=== PATIENT | male | born 1995 | race Caucasian/White ===

== ENCOUNTER 2017-11-28 11:58 | Emergency (ER) | payer BC, MEDICAID, OTHER ==
[2017-11-28] MEDS ORDERED: ONDANSETRON DISINTEGRATING 4 MG TAB PO ONE (12:15)
[2017-11-28] MEDS ORDERED: IPRATROPIUM/ALBUTEROL 3 ML DEYVIAL IH ONE (12:18)
--- NOTE | 2017-11-28 13:20 | EDPHY ---
H & P Stated Complaint: VOMITING AND COUGH SINCE YESTERDAY /DIARRHEA Time Seen by Provider: 11/28/17 12:08 HPI/ROS: CHIEF COMPLAINT: Fever, cough, vomiting and diarrhea History by patient HISTORY OF PRESENT ILLNESS: 22-year-old man with history of asthma and who smokes both tobacco and marijuana is brought in by his mother complaining of 24 hr of flu-like symptoms with subjective fever, cough with posttussive vomiting as well as generalized nausea, vomiting and diarrhea. He thinks her a few specks of blood in his vomit this morning. He denies any blood in his diarrhea. He complains of general malaise and body aches. He needed to use his nebulizer last night because of his coughing and wheezing. He has tried paiv-aop-rdvxyeo cold medicine with no relief. He has been able to take down fluids. REVIEW OF SYSTEMS: As in HPI, and all other systems reviewed and are negative Source: Patient, Family - Medical/Surgical History Hx Asthma: No Hx Chronic Respiratory Disease: No Hx Diabetes: No Hx Cardiac Disease: No Hx Renal Disease: No Hx Cirrhosis: No Hx Alcoholism: No Hx HIV/AIDS: No Hx Splenectomy or Spleen Trauma: No Other PMH: rad. HERNIA INGUINAL. LEFT FA REPAIR - Social History Smoking Status: Heavy smoker - Physical Exam Exam: General Appearance: Alert, nontoxic-appearing. Head: normocephalic, atraumatic Eyes: Pupils equal and round, reactive to light, no pallor or injection. Mouth: Mucous membranes moist. Oropharynx clear with no tonsillar enlargement or exudates or erythema Respiratory: Normal, effort, diffuse scattered inspiratory and expiratory wheezes bilaterally Cardiovascular: Regular rate and rhythm. S1, S2, no murmurs, gallops or rubs appreciated Gastrointestinal: Abdomen is soft and nontender, no masses, bowel sounds normal. Back: No CVA tenderness, no bony tenderness Neurological: Awake, alert and oriented x 3, no pronator drift, normal gait, no pronator drift Skin: Warm and dry, no rashes. Musculoskeletal: No deformities or tenderness. Extremities: full range of motion, no edema, DP2+ bilat Psychiatric: Patient has normal affect, there is no agitation. Constitutional: Initial Vital Signs Temperature (C) 36.6 C 11/28/17 12:05 Heart Rate 72 11/28/17 12:05 Respiratory Rate 20 11/28/17 12:05 Blood Pressure 134/87 H 11/28/17 12:05 O2 Sat (%) 96 11/28/17 12:05 O2 Delivery Mode Room Air Allergies/Adverse Reactions: UNKNOWN ABX Allergy (Uncoded 11/28/17 12:10) Home Medications: Medication Instructions Recorded Ondansetron Odt [Zofran Odt 4 mg 4 mg PO Q4 PRN #12 tab 11/28/17 (*)] Oseltamivir Phosphate [Tamiflu 75 75 mg PO BID #10 cap 11/28/17 mg (*)] Medical Decision Making ED Course/Re-evaluation: 22-year-old smoker presents with flu-like symptoms and wheezing. Influenza B is positive. Patient was given Zofran for his nausea and was able to take oral hydration without difficulty after this. He was given a nebulizer treatment. His peak flow before the neb was 215 afterwards 375. He is also feeling better afterwards and on exam his lungs were clear. We discussed the dangers of smoking, especially in a patient with underlying asthma. We discussed home care and conservative measures for his influenza and patient will be started on Tamiflu. He is discharged home with prescription for Zofran as well for his persistent nausea. We discussed return precautions with the patient and his mother. - Data Points Medications Given: Discontinued Medications Albuterol/Ipratropium (Duoneb) 3 ml IH EDNOW ONE Stop: 11/28/17 12:19 Last Admin: 11/28/17 12:47 Dose: 3 ml Ondansetron HCl (Zofran Odt) 4 mg PO EDNOW ONE Stop: 11/28/17 12:16 Last Admin: 11/28/17 12:20 Dose: 4 mg Departure - Departure Disposition: Home, Routine, Self-Care Clinical Impression: Influenza B Condition: Fair Instructions: Influenza (DC) Additional Instructions: You were seen by Dr. Dixie Ortiz today. Take Tamiflu as prescribed. Use Zofran as needed for nausea. Drink plenty of fluids to stay hydrated. He may have today and tomorrow off work and may return on 12/02 if you are feeling better. Return for any worsening or new concerns. Referrals: CLINICA,KORINA [Other] - As per Instructions Stand Alone Forms: Work Excuse Prescriptions: Ondansetron Odt [Zofran Odt 4 mg (*)] 4 mg PO Q4 PRN #12 tab PRN Reason: Nausea and vomiting Oseltamivir Phosphate [Tamiflu 75 mg (*)] 75 mg PO BID #10 cap
[2017-11-28 13:47] VITALS: BP 134/80
== END 2017-11-28 13:45 | disposition home or self-care (01) ==
LOC: CED 11:58
DX: J10.1 Influenza due to other identified influenza virus with other respiratory manifestations (principal); F17.200 Nicotine dependence, unspecified, uncomplicated
CPT/HCPCS: 87400-PO

== ENCOUNTER 2018-01-09 20:05 | Emergency (ER) | payer MEDICAID ==
[2018-01-09] MEDS ORDERED: ONDANSETRON 4 MG/2 ML VIAL IVP ONE (20:32)
[2018-01-09] MEDS ORDERED: NS 1,000 ML IV ONE (20:32)
[2018-01-09] MEDS ORDERED: IPRATROPIUM/ALBUTEROL 3 ML DEYVIAL IH ONE (20:32)
--- NOTE | 2018-01-09 20:51 | EDPHY ---
H & P Stated Complaint: Cough, congestion, body aches Time Seen by Provider: 01/09/18 20:19 HPI/ROS: This patient complains of cough, subjective fevers for 3-4 days. Reports coughs occasionally productive. He explains that he has difficulty sleeping due to the frequency of the cough over the past 2 nights developed vomiting and diarrhea over the past 48 hr. Describes loose watery stools several episodes yesterday and today. Vomiting was worse yesterday and is diminished today but he still had 6 episodes of vomiting today. He reports minimal capacity as tolerated p.o. Fluids without vomiting. He also reports that the cough is triggering some gagging and vomiting. He reports associated fatigue. He notes no exacerbating factors for symptoms except mild improvement from albuterol MDI and neb that he takes for his asthma. His last neb was 3 hr prior to arrival. ROS: Low-grade subjective fevers. No high fevers or chills. Positive fatigue. No other constitutional symptoms except myalgias. HEENT: Nasal congestion over the past few days. No sinus pain. No sore throat. No ear pain. Neuro: No headache. No other symptoms. Pulmonary: No pleuritic pain. No respiratory distress. No hemoptysis. Cardiovascular: No lightheadedness. No chest pain. GI: No hematemesis. No bloody stools or mucus in stools. No abdominal pain associated with the symptoms : No complaints. No dysuria frequency urgency or testicle pain. Integumentary: No skin rash musculoskeletal: Myalgias 10 point ROS is otherwise negative Source: Patient Exam Limitations: No limitations - Personal History Current Tetanus/Diphtheria Vaccine: Yes Current Tetanus Diphtheria and Acellular Pertussis (TDAP): Yes - Medical/Surgical History Hx Asthma: No Hx Chronic Respiratory Disease: No Hx Diabetes: No Hx Cardiac Disease: No Hx Renal Disease: No Hx Cirrhosis: No Hx Alcoholism: No Hx HIV/AIDS: No Hx Splenectomy or Spleen Trauma: No Other PMH: rad. HERNIA INGUINAL. LEFT FA REPAIR - Social History Smoking Status: Heavy smoker Alcohol Use: Occasionally Drug Use: Marijuana - Physical Exam Exam: Vital signs notable for O2 sat of 94% room air and low-grade fever at 37.8. General Appearance: Alert, no distress. Eyes: Pupils equal and round no pallor or injection. ENT, Mouth: Mucous membranes moist. Respiratory: Bilateral diffuse rhonchi and wheezing. Cardiovascular: Regular rate and rhythm. No murmur gallop or rub. Gastrointestinal: Abdomen is soft and nontender, no masses, bowel sounds normal. Neurological: GCS 15 without focal deficits. Skin: Warm and dry, no rashes. Musculoskeletal: Neck is supple nontender. Extremities are symmetrical, full range of motion. Psychiatric: Mood and affect normal DIFFERENTIAL DIAGNOSIS: After history and physical exam differential diagnosis was considered for influenza a, bronchitis with asthma exacerbation, pneumonia, viral gastroenteritis, marijuana induced hyperemesis Constitutional: Initial Vital Signs Temperature (C) 37.8 C 01/09/18 20:15 Heart Rate 93 01/09/18 20:15 Respiratory Rate 16 01/09/18 20:15 Blood Pressure 138/82 H 01/09/18 20:15 O2 Sat (%) 94 01/09/18 20:15 O2 Delivery Mode Room Air Allergies/Adverse Reactions: UNKNOWN ABX Allergy (Uncoded 11/28/17 12:10) Home Medications: Medication Instructions Recorded Albuterol Hfa Anes Only [Proair 2 puffs IH Q4 PRN #1 mdi 01/09/18 Hfa Icu (*)] Azithromycin [Zithromax] 250 mg PO DAILY #4 tab 01/09/18 Fluticasone Hfa 220 Mcg [Flovent 2 puffs IH DAILY #1 mdi 01/09/18 220 MCG Hfa MDI (*)] predniSONE 60 mg PO DAILY #13 tab 01/09/18 Medical Decision Making - Diagnostics Imaging Results: Two view chest x-ray: Mild airway disease by my interpretation. Otherwise normal. Imaging: I viewed and interpreted images myself ED Course/Re-evaluation: Studies: Rapid influenza swab is negative. CBC normal exception of a prevalence of neutrophils on differential. Basic metabolic panel is normal. IV normal saline bolus Zofran IV with resolution of nausea and vomiting. He tolerated p.o. Intake thereafter without emesis. DuoNeb followed by albuterol neb with decreased wheeze and rhonchi, increased aeration on repeat examination. Prednisone 60 mg p.o. Zithromax 500 mg p.o. Discussion: Patient with history of smoking, asthma bronchitis. We ruled out influenza, ruled out pneumonia. Encouraged him to stop smoking. Does not have evidence of sepsis or other red flag findings today. He improved in terms of pulmonary status with treatment. Patient understands the need to return emergency department should he developed worsening symptoms and will follow up with primary care physician for any ongoing symptoms despite treatment plan. - Data Points Laboratory Results: Laboratory Results 01/09/18 20:55 01/09/18 20:55 Medications Given: Discontinued Medications Acetaminophen (Tylenol) 1,000 mg PO EDNOW ONE Stop: 01/09/18 21:23 Last Admin: 01/09/18 21:33 Dose: 1,000 mg Albuterol (Proventil Neb) 3 ml IH EDNOW ONE Stop: 01/09/18 21:22 Last Admin: 01/09/18 21:33 Dose: 3 ml Albuterol/Ipratropium (Duoneb) 3 ml IH EDNOW ONE Stop: 01/09/18 20:33 Last Admin: 01/09/18 20:42 Dose: 3 ml Azithromycin (Zithromax) 500 mg PO EDNOW ONE PRN Reason: Protocol Stop: 01/09/18 21:22 Last Admin: 01/09/18 21:33 Dose: 500 mg Sodium Chloride (Ns) 1,000 mls @ 0 mls/hr IV ONCE ONE; Wide Open PRN Reason: Protocol Stop: 01/09/18 20:33 Last Admin: 01/09/18 20:42 Dose: 1,000 mls Ondansetron HCl (Zofran) 4 mg IVP EDNOW ONE Stop: 01/09/18 20:33 Last Admin: 01/09/18 20:43 Dose: 4 mg Prednisone (Prednisone) 60 mg PO EDNOW ONE Stop: 01/09/18 21:22 Last Admin: 01/09/18 21:33 Dose: 60 mg Departure - Departure Disposition: Home, Routine, Self-Care Clinical Impression: Acute bronchitis, Asthma exacerbation Condition: Good Instructions: Asthma (ED), How to Stop Smoking (ED), Acute Bronchitis (ED) Additional Instructions: Diagnosis: Acute bronchitis 2. Asthma exacerbation Plan: Quit smoking Humidifier Albuterol inhaler with spacer or albuterol neb per 2-4 hours as needed for cough , wheeze or shortness of breath Prednisone in addition as prescribed After the complete prednisone if he have persistent symptoms then start the Flovent in addition and take that for 10-14 days. The Flovent as an inhaled steroid in his use to diminish inflammation in her airways. You should still use her albuterol inhaler why taking the Flovent. Zithromax antibiotic-next dose tomorrow incomplete course by taking it for another 4 days. Follow up primary care physician for any ongoing symptoms persist despite the treatment plan beyond the next 3-7 days Return emergency department for any significant worsening despite the treatment plan Referrals: NONE *PRIMARY CARE P,. [Primary Care Provider] - As per Instructions Storm Leach MD [Medical Doctor] - As per Instructions Prescriptions: Albuterol Hfa Anes Only [Proair Hfa Icu (*)] 2 puffs IH Q4 PRN #1 mdi PRN Reason: Wheezing Azithromycin [Zithromax] 250 mg PO DAILY #4 tab Fluticasone Hfa 220 Mcg [Flovent 220 MCG Hfa MDI (*)] 2 puffs IH DAILY #1 mdi predniSONE 60 mg PO DAILY #13 tab
[2018-01-09 21:01] LABS: PLATELET COUNT 186 10^3/uL (150-400)
[2018-01-09] MEDS ORDERED: AZITHROMYCIN 250 MG TAB PO ONE (21:21)
[2018-01-09] MEDS ORDERED: ALBUTEROL 3 ML DEYVIAL IH ONE (21:21)
[2018-01-09] MEDS ORDERED: predniSONE 20 MG TAB PO ONE (21:21)
[2018-01-09] MEDS ORDERED: ACETAMINOPHEN 500 MG TAB PO ONE (21:22)
[2018-01-09 21:40] VITALS: BP 123/78
== END 2018-01-09 22:12 | disposition home or self-care (01) ==
LOC: CED 20:05
DX: J45.901 Unspecified asthma with (acute) exacerbation (principal); J20.9 Acute bronchitis, unspecified; F17.200 Nicotine dependence, unspecified, uncomplicated; E86.9 Volume depletion, unspecified
CPT/HCPCS: 71046-PO; 80048-PO; 85025-PO; 87400-PO; 96374; J2405; J7512; J7613

== ENCOUNTER 2018-06-23 12:12 | Emergency (ER) | payer MEDICAID ==
[2018-06-23 12:24] VITALS: BP 137/89
[2018-06-23] MEDS ORDERED: PROPARACAINE 0.5% 15 ML OPHT DROP ONE (12:26)
[2018-06-23] MEDS ORDERED: FLUORESCEIN SODIUM 1 MG STRIP OP ONE (12:26)
[2018-06-23] MEDS ORDERED: OFLOXACIN 0.3% SOLN PREPACK OPHT.BTL TAKEHOME ONE (12:37)
--- NOTE | 2018-06-23 12:39 | EDPHY ---
H & P Stated Complaint: right eye fb occurred 7am today while welding Time Seen by Provider: 06/23/18 12:23 HPI/ROS: CHIEF COMPLAINT: Foreign body HISTORY OF PRESENT ILLNESS: The patient is a 23-year-old man who was welding and got a piece of metal underneath his safety glasses into his right eye. This happened a few hours ago. He complains primarily of pain. No vision changes. No other injuries. Severity: Severe Modifying factors: None REVIEW OF SYSTEMS: Constitutional: denies: chills, fever, recent illness, recent injury EENTM: See HPI denies: blurred vision, double vision, nose congestion Respiratory: denies: cough, shortness of breath Cardiac: denies: chest pain, irregular heart rate, lightheadedness, palpitations Gastrointestinal/Abdominal: denies: abdominal pain, diarrhea, nausea, vomiting, blood streaked stools Genitourinary: denies: dysuria, frequency, hematuria, pain Musculoskeletal: denies: joint pain, muscle pain Skin: denies: lesions, rash, jaundice, bruising Neurological: denies: headache, numbness, paresthesia, tingling, dizziness, weakness Hematologic/Lymphatic: denies: blood clots, easy bleeding, easy bruising Immunologic/allergic: denies: HIV/AIDS, transplant 10 systems reviewed and negative except as noted EXAM: GENERAL: Well-appearing, well-nourished and in no acute distress. HEAD: Atraumatic, normocephalic. EYES: Right pupil with foreign body at 6 o'clock. Pupils equal round and reactive to light, extraocular movements intact, sclera anicteric, conjunctiva are normal. Negative Dwight sign after removal. ENT: TMs normal, nares patent, oropharynx clear without exudates. Moist mucous membranes. NECK: Normal range of motion, supple without lymphadenopathy or JVD. LUNGS: Breath sounds clear to auscultation bilaterally and equal. No wheezes rales or rhonchi. HEART: Regular rate and rhythm without murmurs, rubs or gallops. ABDOMEN: Soft, nontender, normoactive bowel sounds. No guarding, no rebound. No masses appreciated. BACK: No CVA tenderness, no spinal tenderness, step-offs or deformities EXTREMITIES: Normal range of motion, no pitting or edema. No clubbing or cyanosis. NEUROLOGICAL: Cranial nerves II through XII grossly intact. Normal speech, normal gait. 5/5 strength, normal movement in all extremities, normal sensation , normal reflexes PSYCH: Normal mood, normal affect. SKIN: Warm, dry, normal turgor, no visible rashes or lesions. Source: Patient Exam Limitations: No limitations - Personal History Current Tetanus Diphtheria and Acellular Pertussis (TDAP): Yes Tetanus Vaccine Date: within 10 yrs - Medical/Surgical History Hx Asthma: No Hx Chronic Respiratory Disease: No Hx Diabetes: No Hx Cardiac Disease: No Hx Renal Disease: No Hx Cirrhosis: No Hx Alcoholism: No Hx HIV/AIDS: No Hx Splenectomy or Spleen Trauma: No Other PMH: rad. HERNIA INGUINAL. LEFT FA REPAIR - Social History Smoking Status: Former smoker Alcohol Use: Sober Drug Use: None Constitutional: Initial Vital Signs Temperature (C) 37.1 C 06/23/18 12:22 Heart Rate 95 06/23/18 12:22 Respiratory Rate 18 06/23/18 12:22 Blood Pressure 137/89 H 06/23/18 12:22 O2 Sat (%) 96 06/23/18 12:22 O2 Delivery Mode Room Air Allergies/Adverse Reactions: UNKNOWN ABX Allergy (Uncoded 06/23/18 12:21) Home Medications: Medication Instructions Recorded NK [No Known Home Meds] 06/23/18 Medical Decision Making Procedures: Patient examined with fluorescein through slit-lamp. Metal foreign body removed with Q-tip. No rust ring seen. Negative Dwight sign. Patient tolerated the procedure well. ED Course/Re-evaluation: The patient tolerated the procedure well. We discussed antibiotics and follow up with Ophthalmology. The no rust ring at this time. Differential Diagnosis: Partial list of the Differential diagnosis considered include but were not limited to; corneal foreign body, abrasion, perforation and although unlikely based on the history and physical exam, I also considered uveitis, infection. I discussed these differential diagnoses and the plan with the patient as well as the usual and expected course. The patient understands that the diagnosis is provisional and that in medicine we are not always correct and that further workup is often warranted. Usual and customary warnings were given. All of the patient's questions were answered. The patient was instructed to return to the emergency department should the symptoms at all worsen or return, otherwise to followup with the physician as we discussed. - Data Points Medications Given: Discontinued Medications Ofloxacin (Ocuflox 0.3% Opht Drops Prepack) 1 btl TIBURCIO EDNOW ONE Stop: 06/23/18 12:38 Last Admin: 06/23/18 12:48 Dose: 1 btl Departure - Departure Disposition: Home, Routine, Self-Care Clinical Impression: Foreign body in cornea, right eye, initial encounter Condition: Fair Instructions: Ofloxacin (Into the eye), Eye Foreign Body (ED) Additional Instructions: Use the Ocuflox eyedrops for drops every 4 hr until you follow up with Ophthalmology. Referrals: NONE *PRIMARY CARE P,. [Primary Care Provider] - As per Instructions Joseph Hair MD [Medical Doctor] - As per Instructions
== END 2018-06-23 12:50 | disposition home or self-care (01) ==
LOC: CED 12:12
PROC: 08C0XZZ Extirpation of Matter from Right Eye, External Approach (ICD-10-PCS; principal; 2018-06-23)
DX: T15.01XA Foreign body in cornea, right eye, initial encounter (principal); Y93.89 Activity, other specified; Z87.891 Personal history of nicotine dependence

== ENCOUNTER 2018-08-31 08:44 | Emergency (ER) | payer MEDICAID ==
[2018-08-31] MEDS ORDERED: FLUORESCEIN SODIUM 1 MG STRIP OP ONE (08:53)
[2018-08-31] MEDS ORDERED: PROPARACAINE 0.5% 15 ML OPHT DROP ONE (08:53)
--- NOTE | 2018-08-31 09:16 | EDPHY ---
H & P Time Seen by Provider: 08/31/18 08:48 HPI/ROS: This patient was at home doing some metal grinding on a sculpture wearing safety glasses but a piece of metal flew underneath his safety glasses into his right eye Friday, 2 days prior to arrival. Since that time he has had moderate eye discomfort and redness and this morning noted a small foreign body to lower aspect of his right cornea when he looked closely in the mere, prompting his visit. He has had a metallic foreign body once in the past and had to have it removed so he is familiar with this diagnosis and treatment plan. He came in today by private vehicle. He has not taken any pain medication. ROS: Constitutional: No complaints HEENT: No left eye symptoms. No significant change in his vision. 5 point review of symptoms is performed and otherwise negative with exception of pertinent positives and negatives listed in HPI and ROS Smoking Status: Heavy smoker Physical Exam: Physical Exam Vital signs are normal. General: No acute distress HEENT: Atraumatic. Eyes: Pupils equal and react to light. Extraocular motions are intact. Visual acuity reviewed as per nurse's documentation. Patient has conjunctival injection the right eye. On slit-lamp exam after proparacaine anesthesia a small-1.5 mm or so metallic foreign bodies evident at about 7:00 On the right cornea. Lids and lashes are normal anterior chambers normal with no hyphema Cardiac: Brisk capillary refill is intact throughout. Skin: No rash or pallor. Neuro: Alert and oriented x3 Constitutional: Initial Vital Signs Temperature (C) 36.4 C 08/31/18 08:49 Heart Rate 96 08/31/18 08:49 Respiratory Rate 16 08/31/18 08:49 Blood Pressure 124/78 H 08/31/18 08:49 O2 Sat (%) 98 08/31/18 08:49 O2 Delivery Mode Room Air Allergies/Adverse Reactions: UNKNOWN ABX Allergy (Uncoded 08/31/18 08:49) Home Medications: Medication Instructions Recorded Ofloxacin 0.3% [Ocuflox 0.3% (RX)] 2 drops EACHEYE Q1 #1 btl 08/31/18 traMADol [Ultram 50 mg (*)] 50 - 100 mg PO Q4 PRN #12 tab 08/31/18 MDM/Departure - MDM Procedures: Corneal foreign body removal: After verbal consent ease proparacaine anesthesia and then using a slit lamp in ice but I removed metallic foreign body without difficulty. Patient's left with a rust ring which I a buffed out using the eye meek. Patient also tolerated this well with no complications. ED Course/Re-evaluation: Patient had relief of eye pain from eyedrops-proparacaine. I counseled him regarding corneal foreign body and corneal injury. He will started on Ocuflox antibiotic drops, ibuprofen, Tylenol and tramadol for pain control and follow up with Ophthalmology if not improving as anticipated over the next 2-3 days. - Depart Disposition: Home, Routine, Self-Care Clinical Impression: Corneal FB (foreign body) Qualifiers: Encounter type: initial encounter Laterality: right Qualified Code(s): T15.01XA - Foreign body in cornea, right eye, initial encounter Condition: Good Instructions: Tramadol (By mouth), Ofloxacin (Into the eye), Corneal Abrasion ( ED), Eye Foreign Body (ED) Additional Instructions: Diagnosis: Metallic corneal foreign body with rust ring-removed You have a corneal injury will cause eye redness and pain for the next few days. Plan: Antibiotic drops as prescribed Ibuprofen Tylenol for pain as needed If needed, tramadol in addition for pain that prevents sleep. No driving, alcohol work on tramadol Follow-up with inside sales account manager if you're not improving over the next few days with treatment plan. Return emergency department for any significant worsening despite treatment plan Stand Alone Forms: Work Excuse Prescriptions: Ofloxacin 0.3% [Ocuflox 0.3% (RX)] 2 drops EACHEYE Q1 #1 btl traMADol [Ultram 50 mg (*)] 50 - 100 mg PO Q4 PRN #12 tab PRN Reason: breakthrough pain Referrals: NONE *PRIMARY CARE P,. [Primary Care Provider] - As per Instructions Annalise Linares MD [Medical Doctor] - As per Instructions
[2018-08-31] MEDS ORDERED: PROPARACAINE 0.5% 15 ML OPHT DROP RTEYE ONE (09:22)
[2018-08-31 09:28] VITALS: BP 115/75
== END 2018-08-31 09:26 | disposition home or self-care (01) ==
LOC: CED 08:44
PROC: 08C9XZZ Extirpation of Matter from Left Cornea, External Approach (ICD-10-PCS; principal; 2018-08-31)
DX: T15.01XA Foreign body in cornea, right eye, initial encounter (principal); W26.8XXA Contact with other sharp object(s), not elsewhere classified, initial encounter; Y92.9 Unspecified place or not applicable; Y93.9 Activity, unspecified; Y99.9 Unspecified external cause status
CPT/HCPCS: 99284-ER